=== PATIENT | male | born 1980 | race Caucasian/White ===

== ENCOUNTER 2017-12-04 06:12 | Inpatient (IN) | payer OTHER ==
--- NOTE | 2017-12-04 06:34 | ED Physician Chart ---
ED Chief Complaint/HPI - Patient Information Date Seen:: 12/04/17 Time Seen:: 06:25 Chief Complaint:: chest pain History of Present Illness:: Chest pain. Saw a doctor in urgent care to have his right hand evaluated. Allergies:: Allergies Allergy/AdvReac Type Severity Reaction Status Date / Time No Known Allergies Allergy Verified 12/04/17 06:24 Vitals:: Vital Signs - 8 hr 12/04/17 06:15 Temp 98.1 F HR 57 RR 18 BP 117/67 O2 Sat % 98 <Miya Arreaga - Last Filed: 12/04/17 06:34> - Patient Information Allergies:: Allergies Allergy/AdvReac Type Severity Reaction Status Date / Time No Known Allergies Allergy Verified 12/04/17 06:24 Vitals:: Vital Signs - 8 hr 12/04/17 12/04/17 12/04/17 06:15 06:36 07:53 Temp 98.1 F 98.3 F 98.6 F HR 57 68 64 RR 18 18 18 BP 117/67 117/67 109/65 O2 Sat % 98 98 98 12/04/17 09:27 Temp 98.6 F HR 55 RR 16 BP 105/63 O2 Sat % 98 <Abhijeet Avina - Last Filed: 12/13/17 15:46> ED Review of Systems - Review of Systems General/Constitutional: No fever Skin: No skin lesions Head: No headache Eyes: No loss of vision ENT: No earache Neck: No thyromegaly Cardio Vascular: Chest pain Pulmonary: No SOB GI: No nausea G/U: No dysuria Musculoskeletal: No bone or joint pain Psychiatric: No prior psych history Hematopoietic: No bruising Allergic/Immuno: No urticaria Neurological: No syncope <Abhijeet Avina - Last Filed: 12/13/17 15:46> ED Past Medical History - Past Medical History Obtainable: Yes Family History: None <Miya Arreaga - Last Filed: 12/04/17 06:34> - Past Medical History Obtainable: Yes Past Medical History: No significant medical hx <Abhijeet Avina - Last Filed: 12/13/17 15:46> Family Medical History - Family Member Mother History Unknown: Yes Ethnicity: Hx Family Coronary Artery Disease: No <Miya Arreaga - Last Filed: 12/04/17 06:34> ED Physical Exam - Physical Examination General/Constitutional: Awake, Well-developed, well-nourished, Alert, No distress, GCS 15, Non-toxic appearing, Ambulatory Head: Atraumatic Eyes: Lids, conjuctiva normal, PERRL, EOMI Other Skin comments:: Hyperpigmentation from tinea versicolor on the back. ENMT: External ears, nose nl, Nasal exam nl, Lips, teeth, gums nl Neck: Nontender, Full ROM w/o pain, No JVD, No nuchal rigidity, No bruit, No mass, No stridor Respiratory: Nl effort/Exclusion, Clear to Auscultation, No Wheeze/Rhonchi/Rales Cardio Vascular: No murmur, gallop, rubs, NL S1 S2 Other Cardio Vascular comments:: bradycardia. Some pain to palpation of the left pectoralis muscle in the region of 9 oclock on the left breast. No pain to palpation of the pectoralis major insertion. : No CVA tenderness Other Extremities comments:: R hand webspace is swollen and tender to the touch. There is erythema present. No lymphangitis. Suspected foreign body. <Miya Arreaga - Last Filed: 12/04/17 06:34> ED Labs/Radiology/EKG Results - Lab Results Results: Laboratory Tests 12/04/17 12/04/17 12/04/17 06:45 06:45 06:45 WBC 5.6 RBC 4.99 Hgb 15.1 Hct 44.4 MCV 89.0 MCH 30.2 H MCHC Differential 33.9 RDW 12.4 Plt Count 261 MPV 8.2 Neutrophils % 65.1 Lymphocytes % 23.6 Monocytes % 7.4 Eosinophils % 2.4 Basophils % 1.5 Sodium Potassium Chloride Carbon Dioxide Anion Gap BUN Creatinine Est GFR ( Amer) Est GFR (Non-Af Amer) BUN/Creatinine Ratio Glucose Calcium Phosphorus 3.1 Magnesium 2.0 Total Bilirubin AST ALT Alkaline Phosphatase Troponin I 0.46 H* Total Protein Albumin Globulin Albumin/Globulin Ratio 12/04/17 06:45 WBC RBC Hgb Hct MCV MCH MCHC Differential RDW Plt Count MPV Neutrophils % Lymphocytes % Monocytes % Eosinophils % Basophils % Sodium 139 Potassium 4.2 Chloride 104 Carbon Dioxide 28.4 Anion Gap 10.8 BUN 13 Creatinine 0.8 Est GFR ( Amer) > 60.0 Est GFR (Non-Af Amer) > 60.0 BUN/Creatinine Ratio 16.3 Glucose 96 Calcium 9.4 Phosphorus Magnesium Total Bilirubin 0.4 AST 13 ALT 13 Alkaline Phosphatase 66 Troponin I Total Protein 6.7 Albumin 4.3 Globulin 2.4 Albumin/Globulin Ratio 1.8 - Radiology Results Results: no foriegn body seen in hand xray - EKG Interpretations EKG Time:: 08:40 (2nd ekg unchanged) <Abhijeet Avina - Last Filed: 12/13/17 15:46> ED Assessment - Assessment General Assessment: EKG from 12/04/2017, normal sinus rhythm with a rate of 60. Flipped t wave in V1. NSST T wave changes. ST elevation in V3 to V6. NonSTEMI. Previous EKG from 12/02/2017, ST elevation in V1 to V6 (taken at urgent care). Not consistent with STEMI. <Miya Arreaga - Last Filed: 12/04/17 06:34> - Assessment Assessment/Comments:: pt stable 945 no c/o of chest discomfort but still episodes of bradycardia dicussed case thu will place in telemetry status physical exam unremarksbe hand 2/10 acuity <Abhijeet Avina - Last Filed: 12/13/17 15:46> ED Septic Shock - . Is Septic Shock (SBP<90, OR Lactate>4 mmol\L) present?: No - <6hrs of presentation: Vital Signs: Vital Signs - 8 hr 12/04/17 06:15 Temp 98.1 F HR 57 RR 18 BP 117/67 O2 Sat % 98 <Miya Arreaga - Last Filed: 12/04/17 06:34> - . Is Septic Shock (SBP<90, OR Lactate>4 mmol\L) present?: No - <6hrs of presentation: Vital Signs: Vital Signs - 8 hr 12/04/1718 12/04/17 06:15 06:36 07:53 Temp 98.1 F 98.3 F 98.6 F HR 57 68 64 RR 18 18 18 BP 117/67 117/67 109/65 O2 Sat % 98 98 98 12/04/17 09:27 Temp 98.6 F HR 55 RR 16 BP 105/63 O2 Sat % 98 <Abhijeet Avina - Last Filed: 12/13/17 15:46> ED Reassessment (Disposition) - Diagnosis Diagnosis:: Chest pain with ST elevation (nonSTEMI), will r/o. Right hand infection. Will receive IV antibiotics in ER and should be discharged with oral antibiotics as long as no foreign body is noted on Xray. If foreign body is noted on xray, needs to be referred to a hand surgeon today for removal of foreign body (since infection is present). I would place him on either Bactrim or Keflex. If no foreign body is noted on xray, he should be placed in a thumb spica splint and instructed not to use his right hand (to lessen the spread of infection) and be referred to a hand surgeon to see him in a day. Sign out given to Dr. Avina at 7:00 a.m. <Miya Arreaga - Last Filed: 12/04/17 06:34> - Reassessment Reassessment:: Patient stable, no EKG changes. - Patient Disposition Discharge/Transfer:: Acute Care w/in this hosp <Abhijeet Avina - Last Filed: 12/13/17 15:46>
[2017-12-04] MEDS ORDERED: ceFAZolin 1 GM in Sodium Chloride 0.9% 50 ML IV ONE (06:42)
[2017-12-04 06:54] LABS: BASOPHILE ABSOLUTE 0.1 Th/cumm (0-0.2); EOSINOPHILE ABSOLUTE 0.1 Th/cmm (0.1-0.4); LYMPHOCYTE ABSOLUTE 1.3 Th/cmm (1.5-3.0); MONOCYTE ABSOLUTE 0.4 Th/cmm (0.3-1.0); NEUTROPHILE ABSOLUTE 3.7 Th/cmm (1.8-8.0); WHITE BLOOD COUNT 5.6 Th/cmm (4.8-10.8)
[2017-12-04 07:02] LABS: % BASOPHILS 1.5 % (0.0-2.0); % EOSINOPHILS 2.4 % (0.0-5.0); % LYMPHOCYTES 23.6 % (20.0-50.0); % MONOCYTES 7.4 % (2.0-10.0); % NEUTROPHILS 65.1 % (40.0-80.0); HEMATOCRIT 44.4 % (41.0-60); HEMOGLOBIN 15.1 gm/dL (12-16); MEAN CORPUSCULAR HEMOGLOBIN 30.2 pg (26.0-30.0); MEAN CORPUSCULAR HGB CONC 33.9 pg (28.0-36.0); MEAN PLATELET VOLUME 8.2 fl; PLATELET COUNT 261 Th/cmm (150-400); RED BLOOD COUNT 4.99 Mil/cmm (4.30-5.70); RED CELL DISTRIBUTION WIDTH 12.4 % (11.5-20.0)
[2017-12-04 07:09] LABS: ALB/GLOB RATIO 1.8 (1.0-1.8); ALBUMIN 4.3 gm/dL (4.2-5.5); ALKALINE PHOSPHATASE 66 U/L (34-104); ANION GAP 10.8 (7.0-16.0); BILIRUBIN,TOTAL 0.4 mg/dL (0.3-1.0); BUN - UREA NITROGEN 13 mg/dL (7-25); CALCIUM SERUM 9.4 mg/dL (8.6-10.3); CARBON DIOXIDE 28.4 mEq/L (21.0-31.0); CHLORIDE 104 mEq/L (98-107); CREATININE - SERUM 0.8 mg/dL (0.7-1.3); GFR AFRICAN-AMERICAN > 60.0 ml/min (>90); GFR NON AFRICAN-AMERICAN > 60.0 ml/min; GLUCOSE 96 mg/dL (70-105); POTASSIUM SERUM 4.2 mEq/L (3.5-5.1); SGOT 13 U/L (13-39); SGPT/ALT 13 U/L (7-52); SODIUM SERUM 139 mEq/L (136-145); TOTAL PROTEIN,SERUM 6.7 gm/dL (6.0-8.3)
[2017-12-04 07:10] LABS: PHOSPHOROUS 3.1 mg/dL (2.5-5.0)
[2017-12-04] MEDS ORDERED: Aspirin 81mg Chewable Tab ONE ×2 (07:23→07:34)
[2017-12-04] MEDS ORDERED: Aspirin 81mg Chewable Tab PO STA ×2 (07:25)
--- NOTE | 2017-12-04 08:32 | Diagnostic Imaging Report ---
CHEST X-RAY: AP view INDICATION: pain COMPARISON: None FINDINGS: There is no focal consolidation or pleural effusions The heart is borderline prominent normal in size. The osseous structures demonstrate no acute abnormalities. IMPRESSION: No focal consolidation identified
--- NOTE | 2017-12-04 08:35 | Diagnostic Imaging Report ---
Right hand 2 views Indication: Pain, infection, possible foreign body Comparison: none Findings: Limited 2 views of the right hand demonstrate 1 mm density projecting adjacent to the fourth proximal phalanx. No significant focal soft tissue swelling. No gross erosions identified. No evidence of an acute fracture. Minimal degenerative changes are noted. Impression: 1 mm density projecting adjacent to the fourth proximal phalanx. This may represent a calcification. A punctate foreign body is considered less likely. Correlation should be made with clinical findings. No evidence of an acute fracture or osseous erosions. In the setting of trauma, if clinical symptoms persist and there is continued concern for an occult fracture, follow up exams in 5-7 days is suggested.
--- NOTE | 2017-12-04 11:58 | History and Physical ---
History of Present Illness - HPI Chief Complaint: Hand Infection and CP HPI: 2 days ago he went to Urgent care due to hand infection, during Physical examination was found that he had bradycardy and was told to go to ER. He came to ER and EKG shows some ST elevation and elevated troponins reason why he was hospitalized for observation. Vital Signs: Last Vital Signs Temp 99 F 12/04/17 11:48 Pulse 110 12/04/17 11:48 Resp 25 12/04/17 11:48 BP 101/59 12/04/17 10:44 Pulse Ox 99 12/04/17 11:48 Past Medical History Cardiovascular: Report: No Pertinent Hx Pulmonary: Report: No Pertinent Hx [employer]: Report: No Pertinent Hx GI: Report: No Pertinent Hx Psych: Report: No Pertinent Hx Musculoskeletal: Report: No Pertinent Hx Rheumatologic: Report: No pertinent Hx Infectious Disease: Report: Other (Hand infection) Renal/: Report: No Pertinent Hx Endocrine: Report: No Pertinent Hx Dermatology: Report: No Pertinent Hx - Past Surgical History Past Surgical History: No pertinent Hx Family Medical History - Family Member Mother History Unknown: Yes Name:: ARIE Age: 70 Ethnicity: Living Status: Still Living Hx Family Cancer: No Hx Family Coronary Artery Disease: No Hx Family Congestive Heart Failure: No Hx Family Hypertension: No Hx Family Stroke: No Hx Family Diabetes: No Hx Family Seizures: No Hx Family Dementia: No Hx Family AIDS: No Hx Family HIV: No Hx Family COPD: No Hx Family Hepatitis: No Hx Family Psychiatric Problems: No Hx Family Tuberculosis: No Social History Smoke: <1 pack per day Alcohol: Social Drugs: None Lives: With Family Domestic Violence: Negative - Medications Home Medications: Home Medication Medication Instructions Recorded Type NK [No Home Meds] 12/04/17 History - Allergies Allergies/Adverse Reactions: Allergies Allergy/AdvReac Type Severity Reaction Status Date / Time No Known Allergies Allergy Verified 12/04/17 06:24 Review of Systems - Review of Systems Constitutional: Report: No Significant Eyes: Report: No Significant ENT: Report: No Significant Respiratory: Report: No Significant Cardiovascular: Report: Other (Occasional CP) Gastrointestinal: Report: No Significant Musculoskeletal: Report: Other (Some edema and pain in right hand) Skin: Report: No Significant Neurological: Report: No Significant Physical Exam - Physical Exam HEENT: Report: Ears Nose Throat within normal limits Neck: Report: Within normal limits Cardiovascular Systems: Report: Regular, Rate and Rhythm Respiratory: Report: Breath Sounds are within normal limits Abdomen: Report: Non-tender to palpation Back: Report: Inspection of back is within normal limits. Extremities: Report: Other (Tender in right hand) Skin: Report: Color of skin is within normal limits Neuro/Psych: Report: Mood affect is within normal limits - Lab Results All Lab Results last 24 hours: Laboratory Results - last 24 hr 12/04/17 12/04/17 12/04/17 06:45 06:45 06:45 WBC 5.6 RBC 4.99 Hgb 15.1 Hct 44.4 MCV 89.0 MCH 30.2 H MCHC Differential 33.9 RDW 12.4 Plt Count 261 MPV 8.2 Neutrophils % 65.1 Lymphocytes % 23.6 Monocytes % 7.4 Eosinophils % 2.4 Basophils % 1.5 Sodium Potassium Chloride Carbon Dioxide Anion Gap BUN Creatinine Est GFR ( Amer) Est GFR (Non-Af Amer) BUN/Creatinine Ratio Glucose Calcium Phosphorus 3.1 Magnesium 2.0 Total Bilirubin AST ALT Alkaline Phosphatase Troponin I 0.46 H* Total Protein Albumin Globulin Albumin/Globulin Ratio 12/04/17 06:45 WBC RBC Hgb Hct MCV MCH MCHC Differential RDW Plt Count MPV Neutrophils % Lymphocytes % Monocytes % Eosinophils % Basophils % Sodium 139 Potassium 4.2 Chloride 104 Carbon Dioxide 28.4 Anion Gap 10.8 BUN 13 Creatinine 0.8 Est GFR ( Amer) > 60.0 Est GFR (Non-Af Amer) > 60.0 BUN/Creatinine Ratio 16.3 Glucose 96 Calcium 9.4 Phosphorus Magnesium Total Bilirubin 0.4 AST 13 ALT 13 Alkaline Phosphatase 66 Troponin I Total Protein 6.7 Albumin 4.3 Globulin 2.4 Albumin/Globulin Ratio 1.8 - Assessment Assessment: Patient is awake, alert, calm in no acuter distress. Dx: Possible AK, Hand infection. - Plan Plan: Patient is in PO aspirin, AB. Consult with Cardio is requested. Will continue to monitor.
[2017-12-04] MEDS: Sulfamethoxazole/TMP 800/160mg Tab PO SCH (17:50)
--- NOTE | 2017-12-04 18:18 | Consultation ---
DATE OF CONSULTATION: 12/04/[address] Louie. HISTORY OF PRESENT ILLNESS: This is a 37-year-old male patient who came to the Emergency Room complaining of sharp pain in the chest. The patient had bradycardia and the patient was seen in the Emergency Room and admitted. PAST MEDICAL HISTORY: The patient has no significant past medical history. FAMILY HISTORY: Unremarkable. SOCIAL HISTORY: The patient smokes about a pack a day. No history of alcohol abuse. ALLERGIES: None. PHYSICAL EXAMINATION: VITAL SIGNS: Blood pressure 130/80, pulse 50, and respirations 28. HEAD: Normocephalic. No lumps or bumps. EYES: Pupils equal, reactive to light. Fundi show AV nicking, sclerae white, conjunctivae pink. NECK: Carotid 2+. Normal upstroke. JVD flat. Thyroid not palpable. Lymph nodes not palpable. CHEST: Shows increased AP diameter. No kyphosis, scoliosis. LUNGS: Bilateral bronchovesicular breath sounds. HEART: PMI fifth intercostal space with lateral to midclavicular line. S1, S2. No S3, soft S4. Systolic murmur grade 2/6, lower left sternal border without radiation. ABDOMEN: Soft. Liver and spleen not palpable. No organomegaly. Bowel sounds active. NEUROLOGIC: No focal neurological deficit. EXTREMITIES: Peripheral pulses 2+. No pedal edema. CLINICAL IMPRESSION: Chest pain, atypical, sinus bradycardia, nicotine dependence. PLAN: Admit the patient. We will get EKG, troponin level. Get a TSH level. JOB# [id number]
[2017-12-05 05:24] LABS: % EOSINOPHILS 2.1 % (0.0-5.0); % LYMPHOCYTES 26.3 % (20.0-50.0); % MONOCYTES 9.2 % (2.0-10.0); % NEUTROPHILS 61.4 % (40.0-80.0); BASOPHILE ABSOLUTE 0.1 Th/cumm (0-0.2); EOSINOPHILE ABSOLUTE 0.1 Th/cmm (0.1-0.4); HEMATOCRIT 45.2 % (41.0-60); HEMOGLOBIN 15.5 gm/dL (12-16); LYMPHOCYTE ABSOLUTE 1.6 Th/cmm (1.5-3.0); MEAN CELL VOLUME 89.6 fl (80-99); MEAN CORPUSCULAR HEMOGLOBIN 30.7 pg (26.0-30.0); MEAN CORPUSCULAR HGB CONC 34.3 pg (28.0-36.0); MEAN PLATELET VOLUME 8.4 fl; MONOCYTE ABSOLUTE 0.6 Th/cmm (0.3-1.0); NEUTROPHILE ABSOLUTE 3.6 Th/cmm (1.8-8.0); PLATELET COUNT 257 Th/cmm (150-400); RED BLOOD COUNT 5.04 Mil/cmm (4.30-5.70); RED CELL DISTRIBUTION WIDTH 12.3 % (11.5-20.0)
[2017-12-05 05:47] LABS: ALBUMIN 4.6 gm/dL (4.2-5.5); ALKALINE PHOSPHATASE 56 U/L (34-104); ANION GAP 8.8 (7.0-16.0); BILIRUBIN,TOTAL 0.6 mg/dL (0.3-1.0); BUN - UREA NITROGEN 16 mg/dL (7-25); CALCIUM SERUM 9.5 mg/dL (8.6-10.3); CARBON DIOXIDE 28.9 mEq/L (21.0-31.0); CHLORIDE 103 mEq/L (98-107); CREATININE - SERUM 0.9 mg/dL (0.7-1.3); GFR AFRICAN-AMERICAN > 60.0 ml/min (>90); GFR NON AFRICAN-AMERICAN > 60.0 ml/min; GLUCOSE 98 mg/dL (70-105); POTASSIUM SERUM 4.7 mEq/L (3.5-5.1); SGOT 14 U/L (13-39); SGPT/ALT 14 U/L (7-52); SODIUM SERUM 136 mEq/L (136-145); TOTAL PROTEIN,SERUM 6.9 gm/dL (6.0-8.3)
[2017-12-05] MEDS: Sulfamethoxazole/TMP 800/160mg Tab PO SCH (08:35)
--- NOTE | 2017-12-05 08:52 | Discharge Summary ---
General Discharge Summary - Discharge Summary Date of Admission: 12/04/17 Admitting Diagnosis: Possible AK, Hand infection Discharge Date: 12/05/17 Discharge Diagnosis: Elevated troponis, Hand infection Laboratory Findings: Laboratory Results - last 24 hr 12/04/17 12/04/17 12/04/17 06:45 11:58 20:00 WBC RBC Hgb Hct MCV MCH MCHC Differential RDW Plt Count MPV Neutrophils % Lymphocytes % Monocytes % Eosinophils % Basophils % Sodium Potassium Chloride Carbon Dioxide Anion Gap BUN Creatinine Est GFR ( Amer) Est GFR (Non-Af Amer) BUN/Creatinine Ratio Glucose Calcium Total Bilirubin AST ALT Alkaline Phosphatase Troponin I 0.48 H* 0.46 H* Total Protein Albumin Globulin Albumin/Globulin Ratio TSH 1.42 12/05/17 12/05/17 04:21 04:21 WBC 6.0 RBC 5.04 Hgb 15.5 Hct 45.2 MCV 89.6 MCH 30.7 H MCHC Differential 34.3 RDW 12.3 Plt Count 257 MPV 8.4 Neutrophils % 61.4 Lymphocytes % 26.3 Monocytes % 9.2 Eosinophils % 2.1 Basophils % 1.0 Sodium 136 Potassium 4.7 Chloride 103 Carbon Dioxide 28.9 Anion Gap 8.8 BUN 16 Creatinine 0.9 Est GFR ( Amer) > 60.0 Est GFR (Non-Af Amer) > 60.0 BUN/Creatinine Ratio 17.8 Glucose 98 Calcium 9.5 Total Bilirubin 0.6 AST 14 ALT 14 Alkaline Phosphatase 56 Troponin I Total Protein 6.9 Albumin 4.6 Globulin 2.3 Albumin/Globulin Ratio 2.0 H TSH Hospital Course: Patient responded to treatment, troponis do not increased. Patient Chest pain free. Treatment: Patient received aspirin, Bactrim DS, pain control. He was seen by Cardiology. Disposition: PT DISCHARGED HOME Home Medications: Home Medication Medication Instructions Recorded Type Aspirin 81 mg PO DAILY #100 tab 12/05/17 Rx Inpatient Medications: Current Medications Aspirin (Aspirin) 325 mg PO DAILY [facility] Stop: 02/03/18 08:59 Last Admin: 12/05/17 08:35 Dose: 325 mg Trimethoprim/Sulfamethoxazole (Bactrim Ds) 1 tab PO BID [facility] Stop: 02/02/18 16:59 Last Admin: 12/05/17 08:35 Dose: 1 tab Prescriptions: Aspirin 81 mg PO DAILY #100 tab Discharge Diet: Cardiac Consults and Follow-Up: not on staff,PCP is [Primary Care Provider] - FLAVIA LAGUNA ([place]) [Other] Consulting Speciality: Cardiac, Other (PCP to do a stress test) Instructions: Chest Wall Pain, [id number]
--- NOTE | 2017-12-05 16:08 | Cardiology ---
12/04/[address] Louie. PROCEDURE: Echocardiogram. M-MODE ECHOCARDIOGRAM: Mitral valve, anterior leaflet of mitral valve shows normal excursion, EF velocity. Posterior leaflet of mitral valve shows normal excursion. Left ventricular posterior wall shows increased thickness, normal excursion. Interventricular septum shows increased thickness, normal excursion, hypertrophy of the left ventricle, ejection fraction 58%. Left atrium normal. Aortic root shows normal dimension, normal excursion of aortic leaflets. CONCLUSION: Hypertrophy of the left ventricle, ejection fraction 58%. 2D ECHO: Long axis view showed normal sized left ventricle with hypertrophy of the left ventricle. Left atrium normal. Aortic root shows normal dimension, normal excursion of aortic leaflets. Short axis view of mitral valve normal. Short axis view of aortic valve normal. Apical four chamber view showed normal sized left ventricle, left atrium, right ventricle, right atrium, tricuspid and mitral valve. Ejection fraction 58%. CONCLUSION: Hypertrophy of the left ventricle, ejection fraction 58%. Doppler study shows moderate mitral regurgitation, mild tricuspid regurgitation, right ventricular systolic pressure 26 mmHg. JOB# [id number]
== END 2017-12-05 10:10 | disposition home or self-care (01) | DRG 190 ==
LOC: ER 06:12 → TELE 09:55
PROVIDERS: ADMIT General Practice; ATTEND General Practice
DX: I21.3 ST elevation (STEMI) myocardial infarction of unspecified site (principal); B08.4 Enteroviral vesicular stomatitis with exanthem; R00.1 Bradycardia, unspecified; F17.200 Nicotine dependence, unspecified, uncomplicated; Z68.28 Body mass index [BMI] 28.0-28.9, adult
CPT/HCPCS: 36415-UA; 71045-TC; 73120-TC-RT; 80053-TC; 83735-TC; 84100-TC; 84443-TC; 84484-TC; 85025-TC; 93005; J0690; Z7610